=== PATIENT | female | born 1960 | race Caucasian/White ===

== ENCOUNTER 2017-10-14 14:32 | Outpatient (CLI) | payer BC | END 2017-10-14 14:33 | disposition home or self-care (01) | LOC: BICRAD 14:32 | PROVIDERS: ATTEND Internal Medicine Rheumatology | DX: M47.817 Spondylosis without myelopathy or radiculopathy, lumbosacral region (principal); M46.1 Sacroiliitis, not elsewhere classified; M16.0 Bilateral primary osteoarthritis of hip | CPT/HCPCS: 72170 ==

== ENCOUNTER 2017-10-20 13:31 | Outpatient (CLI) | payer BC | END 2017-10-20 13:32 | disposition home or self-care (01) | LOC: BICMAMMO 13:31 | PROVIDERS: ATTEND Family Medicine | DX: Z12.31 Encounter for screening mammogram for malignant neoplasm of breast (principal) | CPT/HCPCS: 77063; 77067 ==

== ENCOUNTER 2021-09-21 13:41 | Outpatient (CLI) | payer BC | END 2021-09-21 13:42 | disposition home or self-care (01) | LOC: BICMAMMO 13:41 | PROVIDERS: ATTEND Internal Medicine Rheumatology | DX: M81.0 Age-related osteoporosis without current pathological fracture (principal); M85.852 Other specified disorders of bone density and structure, left thigh; M85.851 Other specified disorders of bone density and structure, right thigh | CPT/HCPCS: 77080 ==